=== PATIENT | female | born 1990 | race Two or more races ===

== ENCOUNTER 2019-11-23 11:40 | Emergency (ER) | payer SELFPAY ==
[~2019-11-23] VITALS: Ht 177.8 cm; Wt 104.3 kg
[2019-11-23 12:29] LABS: Urine Bacteria FEW /hpf (None Seen); Urine Blood Negative /uL (Negative); Urine Mucus FEW (None Seen); Urine Specific Gravity 1.016 (1.001-1.035); Urine WBC 25 /hpf (0 - 5)
[2019-11-23 14:42] VITALS: BP 140/70
== END 2019-11-23 14:43 | disposition home or self-care (01) ==
LOC: ER 11:40
DX: N39.0 Urinary tract infection, site not specified (principal); F17.210 Nicotine dependence, cigarettes, uncomplicated; Z32.02 Encounter for pregnancy test, result negative
CPT/HCPCS: 81001; 81025